=== PATIENT | female | born 1945 | race Caucasian/White ===

== ENCOUNTER → 2019-03-24 | Outpatient (CLI) | payer OTHER, BC ==
[~2019-03-24] VITALS: Ht 162.6 cm; Wt 95.3 kg
[~2019-03-24] MED LIST: APAP500 PO; ARIMIDEX PO; ASPIRIN EC81 M1 PO; CALCIUM 500 WI1 EAC3 PO; CARDIZEM CD360 MG PO; CLARITIN10 MG PO; EPIDIOLEX100 MG/1 M PO; FISH OIL 1,001000 M1 PO; GABAPENTIN100 MG PO; HYDROCHLOROTHIA25 M2 PO; MULTI-VITAMIN1 EAC5 PO; NORCO 10-325 T1 EACH PO; POTASSIUM99 M1 PO; PRAVACHOL40 MG PO; RELAFEN500 MG PO; RYTHMOL SR225 MG PO; VASOTEC20 MG PO; ZANAFLEX2 MG PO; ZANTAC 150MG T150 M1 PO; ZIAC 10/6.25 MG10 MG PO
[2019-03-24 07:03] VITALS: BP 177/64
--- NOTE | 2019-03-24 09:32 | CATHLAB ---
[facility] [address] [place] [address] INVASIVE PROCEDURE REPORT Name: WEN MURILLO [facility]: [facility] [id number] ������������� Admission: 03/24/19 ������������� Attend Phys: Tanvir Beach, Discharge: ��� ������������� ��� Date of : 41 Date of Service: 03/24/19 0932 �� Report #: [id number] �������� ��������������������������������������������[id number] THIS REPORT FOR: //name// APPROVED REPORT Study performed: 03/24/2019 08:30:32 Patient Details The patient is a 73 year-old female Event Personnel Tanvir Beach Body Presser, Lance Cao RN RN, Shelby Sanchez Jackson, Valisa Monitor Procedures Performed Left Heart Cath w/or w/o Coronaries [id number] [facility] Indication Chest pain Procedure Narrative The patient was brought electively to the Cardiac Catheterization Laboratory and was prepped and draped in a sterile manner. The Right Groin^ was infiltrated with 1% Lidocaine subcutaneous anesthesia. A PINNACLE 6FR Sheath #[id number] sheath was inserted into the RFA^. Coronary angiography was performed using coronary diagnostic catheters. The right coronary system was accessed and visualized with a JR4 catheter. The left coronary system was accessed and visualized with a JL4 catheter. The left ventricle was accessed and visualized with a PIGTAIL catheter. Left ventricular/Aortic Valve gradient assessed via catheter pullback. Left ventriculogram was performed in KOHLI projection. Closure device was deployed with a Fr MYNXGRIP 6/7F #[id number]. The patient tolerated the procedure well and there were no complications associated with the procedure. There was no hematoma. Intraoperative Conscious Sedation Sedation start time: 937 Case end Time: 907 Fentanyl 50 mcg Versed 1 mg Fluoro Time: 3.27 minutes Dose: DAP 7706.00 cGycm2 896 mGy Contrast Type and Amount: Visipaque 110 ml [facility] [place] [address] INVASIVE PROCEDURE REPORT Name: CHIDIWEN Gutierrez Room #: REG Justin#: [id number] ������������� Admission: 03/24/19 ������������� Attend Phys: Tanvir Beach, Discharge: ��� ������������� ��� Date of : 41 Date of Service: 03/24/19 0932 �� Report #: [id number] �������� ��������������������������������������������[id number] Coronary Angiography The patient's coronary anatomy is right dominant. Diagnostic Cath Left Main Normal left main LAD Normal left anterior descending Diagonal 1 Large first diagonal branch, angiographically normal Diagonal 2 Large second diagonal branch, angiographically normal Circumflex The circumflex was large but nondominant and comprised of a single marginal branch OM1 Angiographically normal first marginal branch. Right Coronary The right coronary was angiographically normal. R PDA Moderate size, angiographically normal posterior descending branch. RPLV Normal posterolateral branch Left Ventriculography The left ventricle is normal in size with normal contractility. The left ventricular ejection fraction is estimated to be 65-70%. Left ventricular wall motion abnormalities are not present. There is no mitral insufficiency. Heavy mitral annular calcification noted. Hemodynamics The aortic pressure is 189/79 mmHg with a mean of 124 mmHg. The left ventricular pressure is 176/8 mmHg with a mean of mmHg. The left ventricular end diastolic pressure is 23 mmHg. Conclusion 1. Normal to hyperdynamic global and regional left ventricular systolic function. Ejection fraction 65-70%. 2. Normal left main 3. Normal coronary vasculature. Right coronary dominant circulation. Recommendations Aggressive Medical Therapy ��������������������������������������������� <ELECTRONICALLY SIGNED> ���������������������������������������� By: Tanvir Beach MD, FACC ��������������������������������������������� 03/24/1934 1 1 Tanvir Beach MD, FACC /INF
--- NOTE | 2019-03-25 07:54 | EKG ---
[place] [address] [address] 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 DE LUNA : 1945 Requested By: Tanvir Beach Order Number: [id number] MD: Tanvir Beach Measurements Intervals [place] Rate: 65 P: GA: QRS: 33 QRSD: 155 T: 6 QT: 462 QTc: 481 Interpretive Statements Sinus rhythm Right bundle branch block No previous ECG available for comparison Electronically Signed On 03-25-2019 7:53:55 CDT by Tanvir Beach [email or web address] ��������������������������������������������� <ELECTRONICALLY SIGNED> ���������������������������������������� By: Tanvir Beach MD, [facility] ��������������������������������������������� 03/25/19 0753 0715 4 Tanvir Beach MD, FACC /EPI
== END | disposition home or self-care (01) ==
LOC: CATH 06:13
DX: R07.9 Chest pain, unspecified (principal); I10 Essential (primary) hypertension; E78.5 Hyperlipidemia, unspecified; G47.30 Sleep apnea, unspecified; E78.00 Pure hypercholesterolemia, unspecified; I48.91 Unspecified atrial fibrillation; I48.92 Unspecified atrial flutter; Z79.01 Long term (current) use of anticoagulants; Z98.890 Other specified postprocedural states; Z96.653 Presence of artificial knee joint, bilateral; Z79.899 Other long term (current) drug therapy; Z88.2 Allergy status to sulfonamides; Z79.82 Long term (current) use of aspirin